=== PATIENT | female | born 1935 | race Caucasian/White ===

== ENCOUNTER 2017-07-27 20:27 | Inpatient (IN) | payer OTHER ==
[~2017-07-27] VITALS: Ht 165.1 cm; Wt 63.5 kg
--- NOTE | ~2017-07-27 | 2DMMODE ---
[facility] [place] [employer] [place] [address] 2 D/M-MODE ECHOCARDIOGRAM Name: SILVER VITALE Room #: 352-P ADM IN ..#: [id number] Admission: 07/27/17 Attend Phys: Narinder Kebede Discharge: Date of : 31 Date of Service: 07/28/17 1015 Report #: [id number] THIS REPORT FOR: //name// APPROVED REPORT Study performed: 07/28/2017 09:25:29 EXAM: Comprehensive 2D, Doppler, and color-flow Echocardiogram Patient Location: Bedside Status: routine BSA: 1.70 HR: 83 bpm BP: 102/45 mmHg Rhythm: NSR Other Information Study Quality: Adequate Indications Respiratory distress. 2D Dimensions RVDd: 37.58 mm LVEF(%): 59.80 (>50%) IVSd: 11.35 (7-11mm) LVOT Diam: 20.47 (18-24mm) LVDd: 46.02 mm PWd: 9.73 (7-11mm) Ascending Ao: 34.76 (22-36mm) LVDs: 31.41 (25-40mm) Aortic Root: 35.33 mm Araiza's LVEF: 59.80 % Volumes Left Atrial Volume (Systole) Single Plane 4CH: 30.30 mL Single Plane 2CH: 41.52 mL LA ESV Index: 23.00 mL/m2 Aortic Valve AoV Peak Daryl.: 1.46 m/s AO Peak Gr.: 8.49 mmHg LVOT Max P.83 mmHg LVOT Max V: 0.84 m/s RUDY Vmax: 1.90 cm2 Mitral Valve E/A Ratio: 0.5 MV Decel. Time: 187.46 ms [facility] [place] [address] [place] [address] 2 D/M-MODE ECHOCARDIOGRAM Name: SILVER VITALE Room #: 352-[facility] IN ..#: [id number] Admission: 07/27/17 Attend Phys: Narinder Kebede Discharge: Date of : 31 Date of Service: 07/28/17 1015 Report #: [id number] MV E Max Daryl.: 0.66 m/s MV A Daryl.: 1.25 m/s MV PHT: 54.36 ms IVRT: 65.74 ms Pulmonary Valve PV Peak Daryl.: 0.80 m/s PV Peak Gr.: 2.56 mmHg Pulmonary Vein P Vein S: 0.65 m/s P Vein A: 0.34 m/s P Vein D: 0.35 m/s P Vein A Dur.: 100.3 msec P Vein S/D Ratio: 1.86 Tricuspid Valve TR Peak Daryl.: 2.26 m/s RAP Estimate: 10.00 mmHg TR Peak Gr.: 20.48 mmHg PA Pressure: 35.00 mmHg Left Ventricle The left ventricle is normal size. There is normal LV segmental wall motion. There is normal left ventricular wall thickness. Left ventricular systolic function is normal. LVEF is 50-55%. Mild diastolic dysfunction is present (impaired relaxation pattern). Right Ventricle The right ventricle is normal size. The right ventricular systolic function is normal. Atria The left atrium size is normal. Atrial septal aneurysm The right atrium size is normal. Aortic Valve Aortic valve leaflets are mildly sclerotic No aortic regurgitation is present. There is no aortic valvular stenosis. Mitral Valve The mitral valve is normal in structure. Mild mitral regurgitation. No evidence of mitral valve stenosis. Tricuspid Valve The tricuspid valve is normal in structure. Trace tricuspid regurgitation. Estimated PAP is 35mmHg. Pulmonic Valve [address] [address] 2 D/M-MODE ECHOCARDIOGRAM Name: SILVER VITALE Atilio Room #: 352-P [facility] IN ..#: [id number] Admission: 07/27/17 Attend Phys: Narinder Kebede Discharge: Date of : 31 Date of Service: 07/28/17 1015 Report #: [id number] Pulmonic valve is not well visualized. Great Vessels The aortic root is normal in size. The ascending aorta is normal in size. IVC is normal in size and collapses <50% with inspiration. Pericardium There is no pericardial effusion. <Conclusion> Left ventricular systolic function is normal. LVEF is 50-55%. Mild diastolic dysfunction is present (impaired relaxation pattern). Aortic valve leaflets are mildly sclerotic. No aortic regurgitation or stenosis. The mitral valve is normal in structure. Mild mitral regurgitation. Trace tricuspid regurgitation. Estimated pulmonary artery pressure of 35mmHg. There is no pericardial effusion. <ELECTRONICALLY SIGNED> By: Andres Rdz MD, FACC 07/28/17 1015 1015 1015 Andres Rdz MD, FACC /INF
--- NOTE | ~2017-07-27 | EKG ---
[place] [address] [employer] [facility] [place] [place] [address] ELECTROCARDIOGRAM REPORT Name: SILVER VITALE Room #: 352-P ADM IN M.R.#: [id number] Admission: 07/27/17 Attend Phys: Narinder Ibarra Discharge: Date of : 31 Report #: [id number] THIS REPORT FOR: //name// [facility] ED Test Date: 2017-07-27 Test Time: 20:49:34 Pat Name: SILVER VITALE Department: Room: [facility] Gender: F Entry Tech: MZOOK : 1935 Requested By: Camila Larkin Order Number: [id number] MD: Andres Rdz Measurements Intervals [place] Rate: 106 P: 48 [place]: 140 QRS: -17 QRSD: 76 T: 45 QT: 343 QTc: 456 Interpretive Statements Sinus tachycardia Inferior infarct, old No previous ECG available for comparison Electronically Signed On 07-28-2017 8:21:43 CDT by Andres Rdz [email or web address] <ELECTRONICALLY SIGNED> By: Andres Rdz MD, [facility] 07/28/17 0821 2049 48 Andres Rdz MD, FACC /EPI
[2017-07-27 20:28] VITALS: BP 126/76
[2017-07-27 21:11] LABS: BE(vivo) 0.9 mmol/L (-2 to +3); HCO3 23.5 mmol/L (22.0-26.0); PCO2 30.3 mmHg (35.0-45.0); PO2 139.2 mmHg (80.0-100.0); pH 7.508 (7.360-7.450)
[2017-07-27 21:20] LABS: HEMATOCRIT 28.2 % (37.0-47.0); HEMOGLOBIN 9.1 gm/dL (12.0-15.0); MCH 28.2 pg (26.0-34.0); MCHC 32.3 g/dL (28.0-37.0); MCV 87.1 fL (80.0-100.0); PLATELET COUNT 253 thou/uL (150-400); RBC 3.24 mil/uL (4.20-5.00); RDW 16.7 % (10.5-14.5); WBC 20.6 thou/uL (4.0-11.0)
[2017-07-27 21:31] LABS: ANION GAP 8 mmol/L (7-16); BUN 27 mg/dL (7-18); CALCIUM 8.6 mg/dL (8.5-10.1); CHLORIDE 97 mmol/L (98-107); CO2 26 mmol/L (21-32); CREATININE 1.8 mg/dL (0.6-1.0); GLUCOSE 136 mg/dL (74-106); SODIUM 131 mmol/L (136-145)
[2017-07-27 21:38] LABS: ALBUMIN 3.1 g/dL (3.4-5.0); SGOT 29 U/L (15-37); SGPT 31 U/L (30-65); TOTAL BILIRUBIN 1.2 mg/dL (<0.1-1.0); TOTAL PROTEIN 7.2 g/dL (6.4-8.2); TROPONIN-I < 0.04 ng/mL (<0.06)
[2017-07-27 21:48] LABS: ABSOLUTE NEUTROPHILS 16.9 thou/uL (1.4-8.2)
[2017-07-27 21:49] LABS: ANISOCYTOSIS 1+; POLYCHROMASIA SLIGHT; SCHISTOCYTES RARE
[2017-07-27 22:34] VITALS: BP 114/61
[2017-07-27] MEDS ORDERED: DAPSONE100 MG PO (23:00)
[2017-07-27] MEDS ORDERED: DOXYCYCLINE HYC20 MG PO (23:02)
[2017-07-27] MEDS ORDERED: OMEPRAZOLE 20 M20 M1 PO (23:03)
[2017-07-27] MEDS ORDERED: XARELTO20 MG PO (23:04)
[2017-07-27] MEDS ORDERED: COMBIGAN EYE DR10 ML (23:05)
[2017-07-27] MEDS ORDERED: TRIMETHOPRIM /P10 M1 OP (23:07)
[2017-07-27] MEDS ORDERED: CELEXA20 MG PO (23:10)
[2017-07-27] MEDS ORDERED: MELATONIN5 M1 PO (23:14)
[2017-07-27] MEDS ORDERED: MIRALAX17 GM PO (23:17)
[2017-07-27] MEDS ORDERED: SENOKOT-S1 TA2 PO (23:18)
[2017-07-27] MEDS ORDERED: D3 + K2 DOTS 11 EACH PO (23:20)
[2017-07-27] MEDS ORDERED: COLACE100 MG PO ×2 (23:22→23:23)
[2017-07-27] MEDS ORDERED: HYDROCODONE-AP1 EAC6 PO (23:26)
[2017-07-27] MEDS ORDERED: MILK OF MA2400 MG/10 PO (23:28)
[2017-07-27] MEDS ORDERED: REFRESH CLASSI1 EACH OPHTHALMIC (23:31)
[2017-07-27] MEDS ORDERED: REFRESH TEARS15 ML OPHTHALMIC (23:32)
[2017-07-27] MEDS ORDERED: ATIVAN0.5 MG PO (23:38)
[2017-07-28 03:24] VITALS: BP 94/42
[2017-07-28 05:34] LABS: CREATININE 1.7 mg/dL (0.6-1.0); POTASSIUM 4.1 mmol/L (3.5-5.1)
[2017-07-28 05:41] LABS: HEMATOCRIT 24.3 % (37.0-47.0); MCH 28.5 pg (26.0-34.0); MCV 86.4 fL (80.0-100.0); RBC 2.82 mil/uL (4.20-5.00); RDW 16.8 % (10.5-14.5); WBC 15.8 thou/uL (4.0-11.0)
[2017-07-28 07:22] VITALS: BP 102/45
[2017-07-28 08:26] LABS: BE(vivo) -3.8 mmol/L (-2 to +3); HCO3 19.6 mmol/L (22.0-26.0); PCO2 29.3 mmHg (35.0-45.0); PO2 98.4 mmHg (80.0-100.0); pH 7.443 (7.360-7.450); sO2 97.8 % (92.0-98.0)
[2017-07-28 08:57] LABS: ABSOLUTE RETIC COUNT 0.0993 10^6/uL; OBSERVED RETIC COUNT 3.38 % (0.6-2.6)
[2017-07-28 09:03] LABS: ALBUMIN 2.7 g/dL (3.4-5.0); DIRECT BILIRUBIN 0.3 mg/dL (<0.1-0.3); TOTAL BILIRUBIN 0.9 mg/dL (<0.1-1.0); TOTAL PROTEIN 6.4 g/dL (6.4-8.2)
[2017-07-28 11:16] VITALS: BP 122/65
[2017-07-28 15:11] LABS: URINE BLOOD 2+ (Negative); URINE CLARITY CLOUDY; URINE GLUCOSE-RANDOM* NEGATIVE (Negative); URINE KETONES NEGATIVE (Negative); URINE LEUKOCYTES 3+ (Negative); URINE NITRITE NEGATIVE (Negative); URINE PROTEIN (DIPSTICK) 1+ (Negative); URINE SPECIFIC GRAVITY 1.015 (1.005-1.035)
[2017-07-28 15:12] LABS: ICTOTEST (BILI CONFIRMATORY) Negative (Negative); URINE BILIRUBIN NEGATIVE (Negative); URINE COLOR GREEN
[2017-07-28 15:19] VITALS: BP 80/46
[2017-07-28 15:28] LABS: SQUAMOUS 0-3 Few /LPF (0-3)
[2017-07-28 15:29] LABS: BACTERIA 1-9 Few /HPF (None Seen); CASTS None Seen /LPF (None Seen); CRYSTALS None Seen /LPF (None Seen); URINE RBC 0-2 Rare /HPF (0-2); URINE WBC >25 Many /HPF (0-5)
[2017-07-28 19:40] VITALS: BP 101/57
[2017-07-29 04:10] VITALS: BP 110/61
[2017-07-29 05:43] LABS: BE(vivo) -0.4 mmol/L (-2 to +3); HCO3 21.2 mmol/L (22.0-26.0); PO2 107.2 mmHg (80.0-100.0); pH 7.563 (7.360-7.450); sO2 98.6 % (92.0-98.0)
[2017-07-29 05:44] LABS: PCO2 24.1 mmHg (35.0-45.0)
[2017-07-29 05:59] LABS: ALBUMIN 2.4 g/dL (3.4-5.0); CALCIUM 8.3 mg/dL (8.5-10.1); CREATININE 1.6 mg/dL (0.6-1.0); POTASSIUM 3.8 mmol/L (3.5-5.1)
[2017-07-29 06:05] LABS: % SATURATION 54 % (20-39); IRON 67 ug/dL (50-170); TIBC 125 ug/dL (250-450)
[2017-07-29 07:53] VITALS: BP 114/53
[2017-07-29 11:44] VITALS: BP 99/57
[2017-07-29 15:55] VITALS: BP 102/62
[2017-07-29 19:30] VITALS: BP 144/73
[2017-07-29 20:18] VITALS: BP 123/74
[2017-07-30 03:42] LABS: HEMATOCRIT 24.7 % (37.0-47.0); HEMOGLOBIN 7.8 gm/dL (12.0-15.0); MCH 28.1 pg (26.0-34.0); MCHC 31.7 g/dL (28.0-37.0); MCV 88.6 fL (80.0-100.0); RBC 2.79 mil/uL (4.20-5.00); RDW 17.4 % (10.5-14.5); WBC 12.2 thou/uL (4.0-11.0)
[2017-07-30 03:52] VITALS: BP 124/66
[2017-07-30 07:14] VITALS: BP 132/69
[2017-07-30 11:31] VITALS: BP 85/55
[2017-07-30 15:07] VITALS: BP 84/50
[2017-07-30 19:03] VITALS: BP 113/67
[2017-07-31 04:15] VITALS: BP 119/65
[2017-07-31 07:24] VITALS: BP 134/76
[2017-07-31] MEDS ORDERED: CARDIZEM CD 18180 M3 PO (09:25)
[2017-07-31] MEDS ORDERED: CEFUROXIME500 MG PO (09:25)
[2017-07-31] MEDS ORDERED: TIMOLOL MA0.25 %/52 OPHTHALMIC (09:26)
[2017-07-31] MEDS ORDERED: ATIVAN0.5 MG PO (09:26)
[2017-07-31] MEDS ORDERED: IRON325 PO (09:29)
[2017-07-31 11:46] VITALS: BP 116/68
== END 2017-07-31 15:37 | DRG 871 ==
LOC: ER 20:27 → EROBS 21:47 → 3W 21:47
PROVIDERS: Hospitalist; Nurse Practitioner Acute Care; Nurse Practitioner Family
PROC: B24BZZ4 Ultrasonography of Heart with Aorta, Transesophageal (ICD-10-PCS; principal; 2017-07-28)
DX: A41.9 Sepsis, unspecified organism (principal); J69.0 Pneumonitis due to inhalation of food and vomit; J96.91 Respiratory failure, unspecified with hypoxia; N17.9 Acute kidney failure, unspecified; N39.0 Urinary tract infection, site not specified; F03.90 Unspecified dementia, unspecified severity, without behavioral disturbance, psychotic disturbance, mood disturbance, and anxiety; F32.9 Major depressive disorder, single episode, unspecified; F41.9 Anxiety disorder, unspecified; N18.3 Chronic kidney disease, stage 3 (moderate); Z66 Do not resuscitate; D50.9 Iron deficiency anemia, unspecified; I48.91 Unspecified atrial fibrillation; Z79.01 Long term (current) use of anticoagulants; Z79.899 Other long term (current) drug therapy
CPT/HCPCS: 10879

== ENCOUNTER 2017-08-16 09:25 | Inpatient (IN) | payer OTHER ==
[~2017-08-16] VITALS: Ht 162.6 cm; Wt 69.8 kg
--- NOTE | ~2017-08-16 | HC ---
[facility] [place] [address] CONSULTATION Name: SILVER VITALE Room #: 423-1 ADM IN M.R.#: [id number] Admission: 08/16/17 Attend Phys: Fish Scott MD Discharge: Date of : 31 Report #: [id number] THIS REPORT FOR: //name// CC: Fish Wilkins REASON FOR CONSULTATION: I was asked to evaluate concerning Gram-negative bacteremia. HISTORY OF PRESENT ILLNESS: The patient is an 81-year-old who presents from penitentiary unit to the Emergency Room with fever of 102 degrees. She was having some respiratory distress and anxiety. She was given oxygen, Ativan, Tylenol and transported to the Emergency Room. She denied any urinary tract symptoms, dysuria, abdominal pain or flank pain. No nausea, vomiting or diarrhea. No cough or sputum production. The patient has a history of dementia. She did know that she was in the hospital, but could not tell the date or the year. Two weeks ago, she was hospitalized on 07/27 with E. coli bacteremia and left lower lobe pneumonia. Treated with Zosyn followed by cefuroxime. Organism was sensitive to both. PAST MEDICAL HISTORY: Dementia, anxiety, depression, hip surgery and blepharitis. Also diagnosed with methemoglobinemia and atrial fibrillation during the last hospital stay. 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 Appendectomy, cataract surgery, tonsillectomy, glaucoma, osteoarthritis, anxiety and depression ALLERGIES: None known. MEDICATIONS: As noted on her MAR including Xarelto, Combigan eye drops, timolol eye drops, lorazepam, iron, vitamin C, Celexa, dapsone, Cardizem, melatonin, omeprazole, MiraLax and vitamin D. FAMILY HISTORY: Noncontributory. SOCIAL HISTORY: Nonsmoker and no significant alcohol intake. REVIEW OF SYSTEMS: As noted above. PHYSICAL EXAMINATION: GENERAL: The patient was lethargic. She would arouse and answer simple questions as well as follow commands. She then drifted back off to sleep. VITAL SIGNS: She is on 3 liters of oxygen per nasal cannula with O2 saturation of 93%. She was afebrile, heart rate 90, respiratory rate 18 and blood pressure 94/59. SKIN: Unremarkable. [address] [address] CONSULTATION Name: SILVER VITALE Room #: [facility] ADM IN .R.#: [id number] Admission: 08/16/17 Attend Phys: Fish Scott MD Discharge: Date of : 31 Report #: [id number] LYMPH: Unremarkable. HEENT: Unremarkable. NECK: Supple. LUNGS: Clear. HEART: Regular without murmur. ABDOMEN: Soft, tender in the lower abdomen diffusely without guarding or rebound. No definite CVA tenderness. EXTREMITIES: Unremarkable. GENITAL AND RECTAL: Not performed. LABORATORY STUDIES: Lactate was 2.3. ABGs on 4 liters showed a pO2 of 106, pCO2 of 37, pH 7.4 with methemoglobin of 3.1. Urinalysis 25 wbc's, moderate bacteria. Urine culture is pending. Blood cultures showing gram-negative bacilli. Hemoglobin 9.6, platelet count 276,000 and white count 16.3 with 96% segs and 1% lymphs. Sodium 140, potassium 3.9, bicarbonate [address] scan of the abdomen showed bladder wall thickening with intramural cystic areas. No ureteral dilatation or obstruction. Diverticular disease without evidence of diverticulitis. 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 Recently had an E. coli bacteremia within the last 19 days. Likely has the similar organism. In addition, has chronic renal failure, anemia, leukocytosis, lactic acidosis compensated and mild methemoglobinemia. Suspect methemoglobinemia is related to her dapsone. PLAN: Recommend gram-negative antibiotic coverage for healthcare-associated organisms. IV fluids. Urology evaluation. I am reluctant to place a Buck catheter at this time due to the changes on her CAT scan. We will monitor her outputs as closely as we can without a Buck. Await urology evaluation regarding this. Urine culture is currently pending. We will give IV fluids and monitor her laboratory studies closely. We will give 1 liter of normal saline now and see what her pressure does. If she does not improve with this, we will then transport her down to Intensive Care Unit for further monitoring. The patient will be placed on the telemetry at this time. <ELECTRONICALLY SIGNED> By: Cameron Onofre MD 08/17/17 0752 [id number] Cameron Onofre MD /nt
--- NOTE | ~2017-08-16 | HC ---
[facility] [place] [address] CONSULTATION Name: SILVER VITALE Room #: 423-1 ADM IN M.R.#: [id number] Admission: 08/16/17 Attend Phys: Fish Scott MD Discharge: Date of : 31 Report #: [id number] THIS REPORT FOR: //name// CC: Fish Wilkins CHIEF COMPLAINT: Cystitis. HISTORY OF PRESENT ILLNESS: The patient is an 81-year-old woman who is being seen today at the request of Dr. Scott and Dr. Onofre for evaluation and management of cystitis. She was transferred to [facility] from the residential unit with a fever of 102 degrees. She also had respiratory distress and anxiety. Blood cultures are positive for gram-negative rods. Due to her dementia, it is difficult to obtain a meaningful history from her. ALLERGIES: None. PAST MEDICAL HISTORY: Illnesses, dementia, anxiety, depression, atrial fibrillation, osteoarthritis, glaucoma. PAST SURGICAL HISTORY: Appendectomy, cataract surgery, tonsillectomy. MEDICATIONS: Refer to the medication reconciliation sheet. Of note, she is on Xarelto. FAMILY HISTORY: Noncontributory. SOCIAL HISTORY: She is a nonsmoker. No significant history of alcohol consumption. 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 PHYSICAL EXAMINATION: GENERAL: She is a comfortable appearing woman, sitting up. VITAL SIGNS: Temperature is 36.7, pulse 87, respirations 20, blood pressure 105/48. ABDOMEN: Soft, without masses. LABORATORY DATA: White count is 23,500, hemoglobin 8.0, hematocrit 25.3, platelets 194,000. Sodium is 140, potassium 4.0, chloride 106, CO2 of 28, BUN 21, creatinine 1.4. Urine is yellow, cloudy, specific gravity is 1.015, pH is 5.5, nitrites negative, leukocyte esterase 3+, greater than 25 white cells. Blood cultures are positive for gram-negative rods. CT scan of the abdomen and pelvis shows no calculi or hydronephrosis. There is a small right renal cyst. There are changes consistent with chronic cystitis. IMPRESSION: Bacteremia with pending urine culture. There is no hydronephrosis. [address] [address] CONSULTATION Name: SILVER VITALE Room #: 423-1 ADM IN M.R.#: [id number] Admission: 08/16/17 Attend Phys: Fish Scott MD Discharge: Date of : 31 Report #: [id number] PLAN: We will check postvoid residuals, and at this point, there is no urological surgical indication. By: 0750 [id number] Aries Lopez MD /nt
[~2017-08-16 09:25] MED LIST: ATIVAN0.5 MG PO; CARDIZEM CD 18180 M3 PO; CEFUROXIME500 MG PO; CELEXA20 MG PO; COLACE100 MG PO; COMBIGAN EYE DR10 ML; D3 + K2 DOTS 11 EACH PO; DAPSONE100 MG PO; DOXYCYCLINE HYC20 MG PO; HYDROCODONE-AP1 EAC6 PO; IRON325 PO; MELATONIN5 M1 PO; MILK OF MA2400 MG/10 PO; MIRALAX17 GM PO; OMEPRAZOLE 20 M20 M1 PO; REFRESH CLASSI1 EACH OPHTHALMIC; REFRESH TEARS15 ML OPHTHALMIC; SENOKOT-S1 TA2 PO; TIMOLOL MA0.25 %/52 OPHTHALMIC; TRIMETHOPRIM /P10 M1 OP; XARELTO20 MG PO
[2017-08-16 09:26] VITALS: BP 111/63
[2017-08-16] MEDS ORDERED: VITAMIN D-32000 UNIT PO (09:35)
[2017-08-16] MEDS ORDERED: REFRESH TEARS15 ML (09:35)
[2017-08-16] MEDS ORDERED: XARELTO20 MG PO (09:35)
[2017-08-16] MEDS ORDERED: COMBIGAN EYE DR10 ML (09:36)
[2017-08-16] MEDS ORDERED: TIMOLOL MA0.25 %/52 (09:36)
[2017-08-16] MEDS ORDERED: OXYGEN MISCELL (09:37)
[2017-08-16] MEDS ORDERED: MILK OF MA2400 MG/10 PO (09:37)
[2017-08-16] MEDS ORDERED: LORAZEPAM 0.50.5 MG PO (09:38)
[2017-08-16] MEDS ORDERED: IRON325 PO (09:39)
[2017-08-16] MEDS ORDERED: VITAMINC500 PO (09:39)
[2017-08-16] MEDS ORDERED: CARDIZEM CD180 MG PO (09:40)
[2017-08-16] MEDS ORDERED: CELEXA10 M1 PO (09:40)
[2017-08-16] MEDS ORDERED: DAPSONE100 MG PO (09:40)
[2017-08-16] MEDS ORDERED: MELATONIN5 M1 PO (09:41)
[2017-08-16] MEDS ORDERED: MIRALAX17 GM PO (09:41)
[2017-08-16] MEDS ORDERED: OMEPRAZOLE 20 M20 MG PO (09:41)
[2017-08-16] MEDS ORDERED: SENEXON8.6 MG PO (09:41)
[2017-08-16 09:48] LABS: ABSOLUTE NEUTROPHILS 15.7 thou/uL (1.4-8.2); BASOPHILS 0.5 % (0.0-2.0); HEMATOCRIT 29.9 % (37.0-47.0); HEMOGLOBIN 9.6 gm/dL (12.0-15.0); MCH 28.1 pg (26.0-34.0); MCV 87.8 fL (80.0-100.0); MONOCYTES 1.9 % (1.0-8.0); PLATELET COUNT 276 thou/uL (150-400); POLYS 96.6 % (36.0-66.0); RBC 3.41 mil/uL (4.20-5.00); RDW 18.1 % (10.5-14.5); WBC 16.3 thou/uL (4.0-11.0)
[2017-08-16 09:58] LABS: CALCIUM 8.9 mg/dL (8.5-10.1); CREATININE 1.5 mg/dL (0.6-1.0); POTASSIUM 3.9 mmol/L (3.5-5.1)
[2017-08-16 10:34] LABS: URINE BILIRUBIN NEGATIVE (Negative); URINE BLOOD 2+ (Negative); URINE CLARITY CLOUDY; URINE COLOR YELLOW; URINE GLUCOSE-RANDOM* NEGATIVE (Negative); URINE KETONES NEGATIVE (Negative); URINE NITRITE-REFLEX NEGATIVE (Negative); URINE PROTEIN (DIPSTICK) 1+ (Negative); URINE SPECIFIC GRAVITY 1.015 (1.005-1.035); URINE UROBILINOGEN 0.2 E.U./dl (0.2-1.0)
[2017-08-16 10:35] LABS: URINE LEUKOCYTES-REFLEX 3+ (Negative)
[2017-08-16 10:42] LABS: CASTS None Seen /LPF (None Seen); CRYSTALS None Seen /LPF (None Seen); SQUAMOUS 0-3 Few /LPF (0-3); URINE RBC 0-2 Rare /HPF (0-2); URINE WBC-REFLEX >25 Many /HPF (0-5)
[2017-08-16 15:06] VITALS: BP 114/66
[2017-08-16 15:42] LABS: BE(vivo) -0.8 mmol/L (-2 to +3); HCO3 23.6 mmol/L (22.0-26.0); PCO2 37.4 mmHg (35.0-45.0); PO2 106.3 mmHg (80.0-100.0); pH 7.417 (7.360-7.450)
[2017-08-16 16:32] VITALS: BP 103/55
[2017-08-16 16:35] VITALS: BP 114/65
[2017-08-16 20:00] VITALS: BP 88/48
[2017-08-16 22:15] VITALS: BP 94/59
[2017-08-17] VITALS: BP 113/88
[2017-08-17 06:00] VITALS: BP 105/48
[2017-08-17 06:19] LABS: HEMATOCRIT 25.3 % (37.0-47.0); MCHC 31.8 g/dL (28.0-37.0); MCV 88.1 fL (80.0-100.0); RBC 2.87 mil/uL (4.20-5.00); RDW 18.2 % (10.5-14.5); WBC 23.5 thou/uL (4.0-11.0)
[2017-08-17 06:25] LABS: PLATELET COUNT 194 thou/uL (150-400)
[2017-08-17 06:26] LABS: CALCIUM 7.9 mg/dL (8.5-10.1); CREATININE 1.4 mg/dL (0.6-1.0)
[2017-08-17 08:25] VITALS: BP 116/63
[2017-08-17 08:32] LABS: ABSOLUTE NEUTROPHILS 21.6 thou/uL (1.4-8.2); ANISOCYTOSIS 2+; PLATELET ESTIMATE NORMAL
[2017-08-17 19:23] VITALS: BP 78/45
[2017-08-17 20:00] VITALS: BP 100/66
[2017-08-18 04:33] VITALS: BP 133/70
[2017-08-18 05:15] LABS: CALCIUM 7.9 mg/dL (8.5-10.1); CREATININE 1.4 mg/dL (0.6-1.0); HEMATOCRIT 24.9 % (37.0-47.0); HEMOGLOBIN 7.9 gm/dL (12.0-15.0); MCHC 31.9 g/dL (28.0-37.0); MCV 87.8 fL (80.0-100.0); POTASSIUM 3.8 mmol/L (3.5-5.1); RBC 2.83 mil/uL (4.20-5.00); RDW 17.9 % (10.5-14.5); WBC 18.4 thou/uL (4.0-11.0)
[2017-08-18 08:00] VITALS: BP 119/64
[2017-08-18 16:17] VITALS: BP 185/109
[2017-08-18 16:22] VITALS: BP 108/57
[2017-08-18 20:38] VITALS: BP 120/66
[2017-08-19 07:10] VITALS: BP 139/82
[2017-08-19 07:13] LABS: HEMATOCRIT 22.6 % (37.0-47.0); HEMOGLOBIN 7.3 gm/dL (12.0-15.0); MCH 28.2 pg (26.0-34.0); MCHC 32.4 g/dL (28.0-37.0); MCV 87.1 fL (80.0-100.0); RBC 2.59 mil/uL (4.20-5.00); RDW 17.7 % (10.5-14.5); WBC 8.7 thou/uL (4.0-11.0)
[2017-08-19 07:21] LABS: CREATININE 1.2 mg/dL (0.6-1.0); POTASSIUM 3.9 mmol/L (3.5-5.1)
[2017-08-19 20:00] VITALS: BP 133/71
[2017-08-20 03:13] LABS: HEMATOCRIT 22.4 % (37.0-47.0); HEMOGLOBIN 7.3 gm/dL (12.0-15.0); MCH 28.4 pg (26.0-34.0); MCHC 32.9 g/dL (28.0-37.0); MCV 86.5 fL (80.0-100.0); RBC 2.58 mil/uL (4.20-5.00); RDW 17.2 % (10.5-14.5); WBC 6.7 thou/uL (4.0-11.0)
[2017-08-20 03:25] LABS: CALCIUM 8.1 mg/dL (8.5-10.1); CREATININE 1.1 mg/dL (0.6-1.0)
[2017-08-20 07:00] VITALS: BP 145/97
[2017-08-20 19:44] VITALS: BP 149/95
[2017-08-21 07:20] VITALS: BP 121/79
[2017-08-21 08:01] LABS: HEMATOCRIT 25.7 % (37.0-47.0); HEMOGLOBIN 8.5 gm/dL (12.0-15.0); MCH 28.5 pg (26.0-34.0); MCHC 33.3 g/dL (28.0-37.0); MCV 85.8 fL (80.0-100.0); RBC 2.99 mil/uL (4.20-5.00); RDW 17.3 % (10.5-14.5); WBC 6.7 thou/uL (4.0-11.0)
[2017-08-21 08:17] LABS: ALBUMIN 2.5 g/dL (3.4-5.0); CALCIUM 8.6 mg/dL (8.5-10.1); CREATININE 1.1 mg/dL (0.6-1.0); POTASSIUM 4.3 mmol/L (3.5-5.1); TOTAL BILIRUBIN 0.4 mg/dL (<0.1-1.0); TOTAL PROTEIN 6.5 g/dL (6.4-8.2)
[2017-08-21] MEDS ORDERED: CEFDINIR300 MG PO (14:32)
== END 2017-08-21 17:19 | DRG 871 ==
LOC: ER 09:25 → EROBS 11:03 → 4E 11:03 → SICU 08-18 18:15
PROVIDERS: Emergency Medicine; Hospitalist; Nurse Practitioner
DX: A41.9 Sepsis, unspecified organism (principal); J96.21 Acute and chronic respiratory failure with hypoxia; N12 Tubulo-interstitial nephritis, not specified as acute or chronic; F03.90 Unspecified dementia, unspecified severity, without behavioral disturbance, psychotic disturbance, mood disturbance, and anxiety; F32.9 Major depressive disorder, single episode, unspecified; F41.9 Anxiety disorder, unspecified; R65.20 Severe sepsis without septic shock; I48.91 Unspecified atrial fibrillation; H40.9 Unspecified glaucoma; M19.90 Unspecified osteoarthritis, unspecified site; N18.9 Chronic kidney disease, unspecified; D64.9 Anemia, unspecified; Z66 Do not resuscitate; R29.6 Repeated falls; N30.20 Other chronic cystitis without hematuria; B96.20 Unspecified Escherichia coli [E. coli] as the cause of diseases classified elsewhere; N32.3 Diverticulum of bladder; N32.89 Other specified disorders of bladder; R32 Unspecified urinary incontinence; Z90.49 Acquired absence of other specified parts of digestive tract; Z98.49 Cataract extraction status, unspecified eye; Z87.891 Personal history of nicotine dependence; Z79.899 Other long term (current) drug therapy
CPT/HCPCS: 10183; 15002